=== PATIENT | female | born 1950 | race Asian ===

== ENCOUNTER 2017-06-30 14:49 | Emergency (ER) | payer MEDICARE ==
[~2017-06-30] VITALS: Ht 165.1 cm; Wt 63.5 kg
[2017-06-30 14:55] VITALS: BP 140/84
--- NOTE | 2017-06-30 16:25 | NUR ---
PT IS AAOX3. DOES NOT WISH TO HAVE TREATMENT DONE AND JUST WANT TO GO HOME AND DO HER ERRANDS. AMBULATORY W/ STEADY GAIT. D/C IN STABLE CONDITION.
== END 2017-06-30 16:31 | disposition home or self-care (01) ==
LOC: EDBD 14:54 → ER 14:54
DX: R56.9 Unspecified convulsions (principal); Z88.8 Allergy status to other drugs, medicaments and biological substances
CPT/HCPCS: 99283; A4606; Z7610